=== PATIENT | male | born 1975 | race Two or more races ===

== ENCOUNTER 2025-05-13 18:09 | Inpatient (IN) | payer OTHER ==
[~2025-05-13] VITALS: Ht 172.7 cm; Wt 95.5 kg
[2025-05-13 19:04] LABS: APPEARANCE,URINE CLEAR (CLEAR); GLUCOSE, URINE (UA) TRACE mg/dL (NEGATIVE); LEUKOCYTE ESTERASE ,URINE NEGATIVE (NEGATIVE); NITRATE,URINE NEGATIVE (NEGATIVE); OCCULT BLOOD,URINE NEGATIVE (NEGATIVE); SPECIFIC GRAVITIY, URINE 1.021 (1.003-1.030)
[2025-05-13 19:04] LABS: PLATELET COUNT (AUTO) 252 K/uL (150-450); RED BLOOD CELL COUNT(AUTO) 4.69 MIL/uL (4.50-5.90); RED CELL DISTRIBUTION WIDTH 12.8 % (11.5-14.5); WHITE BLOOD COUNT (AUTO) 6.2 K/uL (4.5-11.0)
[2025-05-13 19:09] LABS: CALCIUM, TOTAL 8.4 mg/dL (8.8-10.5); CREATININE 0.84 mg/dL (0.60-1.30); GLOMERULAR FILTR. RATE CALC > 60 mL/min (>60); GLUCOSE,RANDOM 141 mg/dL (70-110); SODIUM SERUM 136 mmol/L (136-145); UREA NITROGEN, BLOOD 21 mg/dL (7-18)
[2025-05-13] MEDS ORDERED: IOHEXOL 350 MG/ML 100 ML VIAL ONE (19:09)
[2025-05-13] MEDS ORDERED: SODIUM CHLORIDE 0.9% 100 ML ONE (19:09)
[2025-05-13 23:10] VITALS: BP 128/84; PULSE 60; RESP 18; TEMP 97.7; O2SAT 98
[2025-05-14 05:20] VITALS: BP 129/86; PULSE 66; RESP 18; TEMP 97.5; O2SAT 100
[2025-05-14 08:15] VITALS: BP 135/81; PULSE 69; RESP 18; TEMP 97.7; O2SAT 100
[2025-05-14 19:25] VITALS: BP 154/90; PULSE 60; RESP 18; TEMP 98.2; O2SAT 97
[2025-05-15 04:36] VITALS: BP 131/82; PULSE 63; RESP 18; TEMP 98.2; O2SAT 100
[2025-05-15 09:00] VITALS: BP 123/55; PULSE 61; RESP 19; TEMP 97.9; O2SAT 99
== END 2025-05-15 13:17 | DRG 395 ==
LOC: EMS 18:30 → EDH 22:28 → 6S 23:06
PROVIDERS: ADMIT Hospitalist; ATTEND Hospitalist
DX: K40.21 Bilateral inguinal hernia, without obstruction or gangrene, recurrent (principal); K57.30 Diverticulosis of large intestine without perforation or abscess without bleeding; N50.82 Scrotal pain
CPT/HCPCS: 74177; 80048; 81003; 85025; 99285; J7050

== ENCOUNTER 2025-07-26 23:42 | Emergency (ER) | payer OTHER ==
[~2025-07-26] VITALS: Ht 172.7 cm; Wt 88.6 kg
[2025-07-26 23:54] VITALS: TEMP 98.3
[2025-07-27 01:23] LABS: PLATELET COUNT (AUTO) 198 K/uL (150-450); RED BLOOD CELL COUNT(AUTO) 4.84 MIL/uL (4.50-5.90); RED CELL DISTRIBUTION WIDTH 12.7 % (11.5-14.5); WHITE BLOOD COUNT (AUTO) 5.7 K/uL (4.5-11.0)
[2025-07-27 01:50] LABS: CALCIUM, TOTAL 9.0 mg/dL (8.8-10.5); CREATININE 0.81 mg/dL (0.60-1.30); GLOMERULAR FILTR. RATE CALC > 60 mL/min (>60); GLUCOSE,RANDOM 126 mg/dL (70-110); SODIUM SERUM 139 mmol/L (136-145); UREA NITROGEN, BLOOD 17 mg/dL (7-18)
[2025-07-27] MEDS ORDERED: IOHEXOL 300 MG/ML 100 ML VIAL ONE (02:54)
[2025-07-27 04:45] VITALS: BP 129/73; PULSE 71; RESP 16; O2SAT 100
== END 2025-07-27 07:40 ==
LOC: EMS 23:44
DX: K40.21 Bilateral inguinal hernia, without obstruction or gangrene, recurrent (principal)
CPT/HCPCS: 99285; 80048; 85025; 36415; 74177; Q9967